=== PATIENT | female | born 1950 ===

== ENCOUNTER 2019-04-26 12:00 | Inpatient (IN) | payer OTHER ==
[~2019-04-26] VITALS: Ht 152.4 cm; Wt 92.5 kg
[2019-04-26] MEDS ORDERED: SYNTHROID112 MCG PO (13:32)
== END 2019-05-05 12:08 | disposition home or self-care (01) | DRG 735 ==
LOC: O/R 12:00 → OB/GYN 05-02 05:14 → O/R 05-02 05:14 → SURH 05-02 07:00 → OB/GYN 05-02 14:10
PROVIDERS: ADMIT Obstetrics & Gynecology Gynecologic Oncology
PROC: 07TC0ZZ Resection of Pelvis Lymphatic, Open Approach (ICD-10-PCS; 2019-05-02)
PROC: 0UT70ZZ Resection of Bilateral Fallopian Tubes, Open Approach (ICD-10-PCS; 2019-05-02)
PROC: 0UT20ZZ Resection of Bilateral Ovaries, Open Approach (ICD-10-PCS; 2019-05-02)
PROC: 0UT90ZZ Resection of Uterus, Open Approach (ICD-10-PCS; principal; 2019-05-02 07:00)
DX: C54.1 Malignant neoplasm of endometrium (principal); E03.8 Other specified hypothyroidism; Z90.710 Acquired absence of both cervix and uterus; Z98.890 Other specified postprocedural states; Z88.2 Allergy status to sulfonamides